=== PATIENT | female | born 1940 | race Caucasian/White ===

== ENCOUNTER → 2016-05-27 | Outpatient (CLI) | payer MEDICARE, OTHER ==
--- NOTE | 2016-05-28 11:35 | MAM ---
History: Well woman exam. Date of exam: 05/27/2016 Services provided: Bilateral full field digital screening mammography. CAD, the images were reviewed with R2 computer aided detection. FINDINGS: Glandular tissue is scattered glandular contour. Comparison with 2013 exam. No dominant mass, architectural distortion or clustered microcalcification. IMPRESSION: Benign exam Recommendation: Routine annual mammography BI-RADS Category 2: Benign Electronically signed by: Mai Sharif MD 05/28/2016 11:34 AM CDT
== END | disposition home or self-care (01) ==
LOC: MAMMO 16:08
PROVIDERS: ATTEND Internal Medicine Hematology & Oncology
DX: Z12.31 Encounter for screening mammogram for malignant neoplasm of breast (principal)

== ENCOUNTER 2016-06-01 14:31 | Emergency (ER) | payer MEDICARE, OTHER ==
[2016-06-01] MEDS ORDERED: CYCLOBENZAPRINE HCL 10 MG TAB PO ONE (14:56)
[2016-06-01] MEDS ORDERED: methylPREDNISolone SODIUM SUC 125 MG/2 ML VIAL IM ONE (14:56)
--- NOTE | 2016-06-01 14:59 | ED.PDOC ---
History of Present Illness - General Chief Complaint: Chest Pain/DC Stated Complaint: pain to left chest, shoulder and neck Time Seen by Provider: 06/01/16 14:41 Source: patient, RN notes reviewed, Vital Signs reviewed, family Exam Limitations: no limitations - History of Present Illness Initial Comments: Patient comes in with c/o of L neck, back, lateral chest and upper chest pain for the past several days. The pain is sharp and worse with movement. This past week her [employer] took her off Lodine. Pain started a couple days after stopping the medication and has just progressively worsened. She has tried heat , massage and OTC Wilbert-carlin without improvement. Timing/Duration: getting worse - over past 3-4 days Severity: severe Improving Factors: immobilization Worsening Factors: movement Associated Symptoms: chest pain Allergies/Adverse Reactions: Allergies NO KNOWN ALLERGY Allergy (Verified 06/01/16 14:56) Home Medications: Ambulatory Orders Aspirin 81 mg PO DAILY 11/09/12 Etodolac 400 mg PO BID 11/09/12 Fluticasone Prop 0.05% Nasal [Flonase Nasal Blaine] 50 mcg KATELIN DAILY 11/09/12 Folic Acid-Vitamin B6-Vitamin [Folbee 2.5-25-1 mg] 1 tab PO DAILY 11/09/12 Methotrexate Inj 0.7 ml SC WKLY 11/09/12 Tramadol HCl 50 mg PO TID 11/09/12 Folic Acid 1 mg PO DAILY 04/13/14 Tamoxifen Citrate 20 mg PO BEDTIME 04/13/14 Cyclobenzaprine HCl [Flexeril] 5 mg PO Q8HRS PRN #15 tab 06/01/16 methylPREDNISolone TAB [Medrol Tab] 4 mg PO DAILY #1 pack 06/01/16 Review of Systems - Review of Systems Constitutional: States: no symptoms reported Respiratory: States: no symptoms reported Cardiology: States: chest pain, edema, palpitations, syncope Gastrointestinal/Abdominal: States: no symptoms reported Musculoskeletal: States: see HPI, back pain, muscle pain, muscle stiffness, neck pain Skin: States: other - burn on low back from heating pad Neurological: States: no symptoms reported. Denies: headache, numbness, paresthesia, tingling Past Medical History (General) - Patient Medical History Hx Congestive Heart Failure: No Hx Diabetes: No Hx Gastroesophageal Reflux: Yes Hx Cancer: Yes - Breast CA Surgical History: no surgical history - Vaccination History Hx Influenza Vaccination: Yes - Social History Hx Tobacco Use: No Hx Alcohol Use: No Hx Substance Use: No Hx Substance Use Treatment: No Hx Depression: No - Activities of Daily Living Hospice Agency (if applicable):: None - Female History Patient is a Female of Child Bearing Age (10 -59 yrs old): No Patient : No Family Medical History - Family History Mother Family History: Unknown Living Status: Physical Exam - Physical Exam General Appearance: Alert, No apparent distress, Well Developed, Well Groomed, Well Hydrated, Well Nourished, Other - in obvious pain Neck: full range of motion, supple, tender lateral - Left with muscle spasm, tender midline - Lower aspect of C-spine Respiratory: lungs clear, normal breath sounds, no respiratory distress, no accessory muscle use, other - L upper chest and anterior shoulder is tender to palpation. Also tender L ant. axilla Cardiovascular/Chest: regular rate, rhythm, no edema, no gallop, no JVD, no murmur Back Exam: no vertebral tenderness, muscle spasm - L thoracic spine Extremity: normal range of motion, non-tender, normal inspection Neurologic: no motor/sensory deficits, alert, normal mood/affect, oriented x 3 Skin Exam: normal color, warm/dry Comments: Vital Signs - 24 hr 06/01/16 14:37 Pulse Rate [ 82 pulse ox] Respiratory 20 Rate Blood Pressure 155/80 [Right Arm] O2 Sat by Pulse 95 Oximetry Progress - Progress Progress: 06/01/16 15:04 Pain definitely sounds musculoskeletal. She has Rheumatoid Arthritis. EKG shows no acute changes. Will start with Flexeril and steroid shot. 06/01/16 16:02 Patient reports she is feeling much better. Will d/c home with Rx for Flexeril and Medrol dose pack Rec that she call her [employer] in AM - EKG/XRAY/CT EKG: Sinus, nonspecific ST T wave Chg Comments: Rate 79 bpm Departure - Departure Clinical Impression: Rheumatoid arthritis flare, Muscle spasm of back Time of Disposition: 16:03 Disposition: Discharge to Home or Self Care Condition: Good Departure Forms: ED Discharge - Pt. Copy, Patient Portal Self Enrollment Instructions: DI for Cervical Muscle Strain Diet: resume usual diet Activity: ambulate only with walker Referrals: Brian Mendieta MD [Primary Care Provider] - 1-2 Weeks Prescriptions: Cyclobenzaprine HCl [Flexeril] 5 mg PO Q8HRS PRN #15 tab PRN Reason: Muscle Spasms methylPREDNISolone TAB [Medrol Tab] 4 mg PO DAILY #1 pack Home Medications: Ambulatory Orders Aspirin 81 mg PO DAILY 11/09/12 Etodolac 400 mg PO BID 11/09/12 Fluticasone Prop 0.05% Nasal [Flonase Nasal Blaine] 50 mcg KATELIN DAILY 11/09/12 Folic Acid-Vitamin B6-Vitamin [Folbee 2.5-25-1 mg] 1 tab PO DAILY 11/09/12 Methotrexate Inj 0.7 ml SC WKLY 11/09/12 Tramadol HCl 50 mg PO TID 11/09/12 Folic Acid 1 mg PO DAILY 04/13/14 Tamoxifen Citrate 20 mg PO BEDTIME 04/13/14 Cyclobenzaprine HCl [Flexeril] 5 mg PO Q8HRS PRN #15 tab 06/01/16 methylPREDNISolone TAB [Medrol Tab] 4 mg PO DAILY #1 pack 06/01/16
[2016-06-01 16:28] VITALS: BP 167/87; O2SAT 97
== END 2016-06-01 16:15 | disposition home or self-care (01) ==
LOC: ER 14:31
DX: M06.9 Rheumatoid arthritis, unspecified (principal); M62.830 Muscle spasm of back; K21.9 Gastro-esophageal reflux disease without esophagitis; Z85.3 Personal history of malignant neoplasm of breast; Z79.82 Long term (current) use of aspirin; Z79.899 Other long term (current) drug therapy
CPT/HCPCS: 93005; J2930

== ENCOUNTER → 2016-12-10 | Outpatient (CLI) | payer MEDICARE, OTHER | END | disposition home or self-care (01) | LOC: LAB.O 11:17 | PROVIDERS: ATTEND Internal Medicine Hematology & Oncology | DX: C50.411 Malignant neoplasm of upper-outer quadrant of right female breast (principal); M19.90 Unspecified osteoarthritis, unspecified site; Z17.0 Estrogen receptor positive status [ER+] ==

== ENCOUNTER → 2016-12-17 | Outpatient (CLI) | payer MEDICARE, OTHER ==
--- NOTE | 2016-12-18 13:33 | US ---
EXAM DESCRIPTION: Soft Tissue,Head/Neck CLINICAL HISTORY: LYMPHADENOPATHY COMPARISON: None. TECHNIQUE: 2-D sonography FINDINGS: Sonography is believed to be of the submandibular glands. A small cyst is observed in the right submitted fibular gland measuring 4 mm in diameter. Sonography of the left submandibular gland reveals a somewhat heterogeneous appearance. No discrete mass is observed. IMPRESSION: The left submandibular gland is felt to be slightly heterogeneous. No discrete mass is observed. If further evaluation is desired I would recommend CT of the head and neck. Electronically signed by: Cole Correia MD 12/18/2016 1:32 PM [employer]ER
== END | disposition home or self-care (01) ==
LOC: US 16:02
PROVIDERS: ATTEND Family Medicine
DX: R59.9 Enlarged lymph nodes, unspecified (principal)

== ENCOUNTER → 2017-03-31 | Outpatient (CLI) | payer MEDICARE, OTHER | LOC: GMATM 14:50 | PROVIDERS: ATTEND Nurse Practitioner Family | DX: N30.00 Acute cystitis without hematuria (principal) ==

== ENCOUNTER → 2017-05-07 | Outpatient (CLI) | payer MEDICARE, OTHER | LOC: GMAJ 08:38 | PROVIDERS: ATTEND Family Medicine | DX: N30.00 Acute cystitis without hematuria (principal); R31.21 Asymptomatic microscopic hematuria; M54.5 Low back pain ==

== ENCOUNTER → 2017-05-12 | Outpatient (CLI) | payer MEDICARE, OTHER | END | disposition home or self-care (01) | LOC: MAMMO 13:49 | PROVIDERS: ATTEND Family Medicine | DX: Z12.31 Encounter for screening mammogram for malignant neoplasm of breast (principal) ==

== ENCOUNTER → 2017-05-25 | Outpatient (CLI) | payer MEDICARE, OTHER | LOC: GMAJ 13:26 | PROVIDERS: ATTEND Family Medicine | DX: N30.00 Acute cystitis without hematuria (principal) ==

== ENCOUNTER → 2017-05-28 | Outpatient (CLI) | payer MEDICARE, OTHER ==
--- NOTE | 2017-06-01 11:35 | MAM ---
EXAM DESCRIPTION: 3D Screening BILATERAL : Digital Mammography. CLINICAL HISTORY: 76 years Female SCREENING . Right breast cancer November 2012. Biopsy-proven. No family history breast cancer. Postmenopausal. No HRT. COMPARISON: 2-D digital screening bilateral study 05/27/2016. 2-D digital screening bilateral study 10/12/2012. Report from prior examination 2017 also reviewed. TECHNIQUE: Bilateral CC and MLO projection full-field images, 3-D tomosynthesis digital mammographic technique. Also bilateral synthesized CC/ MLO full-field images. CAD not utilized. FINDINGS: The breast parenchymal density pattern is: Scattered areas of fibroglandular density. No skin thickening or nipple retraction bilateral solitary microcalcifications. Bilateral vascular calcifications. Focal architectural distortion in the posterior third of the lateral right breast is most likely fatty necrosis, location of prior biopsy and malignancy. No focal, stellate mass or density, focal asymmetry , and no suspicious microcalcifications bilaterally. Stable mammograms compared to prior study, taking into account differences in mammographic technique IMPRESSION: BI-RADS CATEGORY: 2 - BENIGN FINDINGS. FOLLOW UP: Routine digital bilateral screening, one year interval from May 2017. Written communication explaining the IMPRESSION and follow-up, will be mailed to the patient and referring health care provider. According to the [employer], yearly mammograms are recommended starting at age 40 and continuing as long as a woman is in good health. Any breast change noted on a breast self-exam should be reported promptly to the patient's healthcare provider. Breast MRI is recommended for women with an approximately 20-25% or greater lifetime risk of breast cancer, including women with a strong family history of breast or ovarian cancer and women who have been treated for Hodgkin's disease. A negative mammographic report should not delay tissue diagnosis in patients with significant clinical history or physical findings. Extremely dense breast tissue limits the sensitivity of digital mammography. Electronically signed by: Harish Escalante MD 06/01/2017 11:33 AM CDT
== END ==
LOC: MAMMO 15:00
PROVIDERS: ATTEND Family Medicine
DX: Z12.31 Encounter for screening mammogram for malignant neoplasm of breast (principal)

== ENCOUNTER → 2017-07-16 | Outpatient (CLI) | payer MEDICARE, OTHER | LOC: LAB.O 13:41 | PROVIDERS: ATTEND Internal Medicine Rheumatology | DX: Z79.899 Other long term (current) drug therapy (principal) ==

== ENCOUNTER → 2017-08-03 | Outpatient (CLI) | payer MEDICARE, OTHER | LOC: GMAJ 15:00 | PROVIDERS: ATTEND Family Medicine | DX: R07.2 Precordial pain (principal) ==

== ENCOUNTER → 2017-08-04 | Outpatient (CLI) | payer MEDICARE, OTHER ==
--- NOTE | 2017-08-04 10:40 | CT ---
EXAM DESCRIPTION: Chest w/Contrast : Computed Tomography. CLINICAL HISTORY: PRECORDIAL PAIN COMPARISON: Chest x-ray from [facility] clinic 07/30/2017. 3-D screening bilateral mammography 05/28/2017. TECHNIQUE: Spiral-axial scans at 5.0 mm intervals through the lungs and thorax without IV contrast. 2.5 mm lung algorithm axial reconstructions. Coronal and sagittal 2.0 Mm reconstructions. No adverse reactions. Total Exam DLP: 401.62 mGy-cm. This exam was performed according to our departmental dose-optimization program which includes automated exposure control, adjustment of the mA and/or kV according to patient size and/or use of iterative reconstruction technique; to reduce radiation dose to as low as reasonably achievable (ALARA). FINDINGS: Bilateral apical pleural thickening. 3 mm subpleural soft tissue nodule lateral base of the right upper lobe (axial series 4, image 54). 3 mm soft tissue nodule subpleural lateral right lower lobe on image 90. 4.5 mm soft tissue nodule which may be associated with the major fissure lateral right middle lobe on image 72. 3 mm soft tissue nodule lateral right middle lobe, image 70 bilateral. Centrilobular blebs are present mostly in the upper lobes. Minimal scarring in the bases. No pleural effusion or pneumothorax. Focal asymmetry in the left breast posterior third at the level of the nipple. Great vessels enhance well without contrast. Bilateral enhancement of the thyroid gland. No enlarged lymph nodes or soft tissue masses in the chest wall mediastinum or enrique or axilla. Subdiaphragmatic peritoneal space shows no fluid or free air. Normal size and enhancement of the adrenal glands and spleen. 4 cm cyst upper pole left kidney. Atherosclerosis abdominal aorta. Subcentimeter cyst right liver abutting the capsule. Disc space narrowing thoracic spine multiple levels. IMPRESSION: 1. Multiple soft tissue subpleural nodules in the right lung, all less than [address] follow-up in 12 month interval according to [facility] recommendations. Please see below. Minimal emphysematous changes more prevalent in the upper lung dey. No significantly abnormal nodule mass infiltrate or pleural effusion. 2. No hilar mediastinal or axillary abnormal lymph nodes or soft tissue masses. 3. Focal asymmetry posterior third left breast in the same transverse plane as the nipple. This was seen on recent digital mammography in May 2017 and was stable compared to prior digital mammography October 2015. 4. 4 cm cyst left kidney. Electronically signed by: Hraish Escalante MD 08/04/2017 10:39 AM CDT
== END ==
LOC: CT 07:59
PROVIDERS: ATTEND Family Medicine
DX: R07.2 Precordial pain (principal); R91.8 Other nonspecific abnormal finding of lung field; N28.1 Cyst of kidney, acquired

== ENCOUNTER → 2017-08-18 | Outpatient (CLI) | payer MEDICARE, OTHER | LOC: GMAJ 17:00 | PROVIDERS: ATTEND Family Medicine | DX: N95.0 Postmenopausal bleeding (principal) ==

== ENCOUNTER → 2017-08-20 | Outpatient (CLI) | payer MEDICARE, OTHER ==
--- NOTE | 2017-08-20 16:52 | US ---
Procedure: US TRANSVAGINAL Exam Date: 08/20/2017 Ordering Provider: DEONTE YUN Clinical Indication: POSTMENOPAUSAL BLEEDING Comparison: None Technique: Transabdominal and endovaginal ultrasound of the pelvis was obtained. Findings: The uterus measures 9.0 x 3.5 x 4.6 cm . There are no uterine masses. The endometrial complex measures 21.2 mm which is abnormal. The endometrium is heterogenous, vascular and demonstrates cystic change. Nabothian cysts. Ovaries were obscured by overlying bowel gas. No pelvic free fluid. Impression: 1. Abnormally thickened vascular endometrial complex with cystic change. Tissue sampling and [employer]ATOR consultation are recommended. Electronically signed by: Garcia Espinosa MD 08/20/2017 4:50 PM CDT
== END ==
LOC: US 14:34
PROVIDERS: ATTEND Family Medicine
DX: R10.2 Pelvic and perineal pain (principal)

== ENCOUNTER → 2018-06-03 | Outpatient (CLI) | payer MEDICARE, OTHER ==
--- NOTE | 2018-06-04 12:55 | MAM ---
EXAM DESCRIPTION: 3D Screening BILATERAL : Digital Mammography. CLINICAL HISTORY: 77 years Female ANNUAL SCREENING . No complaints. Right breast cancer 2013. No family history breast cancer. Lifetime risk of developing breast cancer (Tyrer-Cuzick model)(%): Not calculated due to personal history of breast cancer. COMPARISON: Digital screening bilateral breast tomosynthesis. 05/28/2017. TECHNIQUE: Bilateral CC and MLO projection full-field images, digital tomosynthesis mammographic technique. Bilateral digital 2-D full-field MLO images. CAD not available for tomosynthesis or 2-D images. FINDINGS: The breast parenchymal density pattern is: Scattered areas of fibroglandular density. No skin thickening or nipple retraction. Bilateral solitary microcalcifications. Bilateral groups of calcifications. Bilateral vascular calcifications. Minimal artifact from patient's chin in the [id number] on the coronal images. No new focal, stellate mass or density, focal asymmetry , and no suspicious microcalcifications bilaterally. Stable mammograms compared to prior study. Taking into account, differences in mammographic technique. IMPRESSION: Benign exam. BIRAD CATEGORY: 2 BENIGN FINDINGS. RECOMMENDATIONS: FOLLOW UP: Routine digital bilateral mammographic screening, one year interval from May 2018. Written communication explaining the IMPRESSION and follow-up, will be mailed to the patient and referring health care provider. The FINDINGS and the FOLLOW-UP plan were reviewed in person with the patient after the examination. According to the [employer], yearly mammograms are recommended starting at age 40 and continuing as long as a woman is in good health. Any breast change noted on a breast self-exam should be reported promptly to the patient's healthcare provider. Breast MRI is recommended for women with an approximately 20-25% or greater lifetime risk of breast cancer, including women with a strong family history of breast or ovarian cancer and women who have been treated for Hodgkin's disease. A negative mammographic report should not delay tissue diagnosis in patients with significant clinical history or physical findings. Extremely dense breast tissue limits the sensitivity of digital mammography. Electronically signed by: Harish Escalante MD 06/04/2018 12:53 PM CDT
== END ==
LOC: MAMMO 10:00
PROVIDERS: ATTEND Internal Medicine Hematology & Oncology
DX: Z12.31 Encounter for screening mammogram for malignant neoplasm of breast (principal)

== ENCOUNTER → 2018-06-16 | Outpatient (CLI) | payer MEDICARE, OTHER ==
--- NOTE | 2018-06-16 12:53 | CT ---
EXAM DESCRIPTION: Chest w/Contrast CLINICAL HISTORY: 77 years, Female, R91.1 PULMONARY NODULE COMPARISON: Previous study August 04, 2017 TECHNIQUE: Thin-section noncontrast axial CT images are obtained according to our protocol. Reconstructed MPR images are created and reviewed as well. FINDINGS: Lungs: No consolidating pulmonary infiltrate or groundglass infiltrate. No worrisome pulmonary mass or nodule. Small triangular density associated with the minor fissure measures 4 mm consistent with a small pulmonary lymph node. This is unchanged compared to the previous study August 04, 2017 Minimal pleural parenchymal scarring in the lung apices. Small linear subpleural scarring anterior right upper lobe. Minimal linear scarring in the lingula and right middle lobe. Calcified granuloma in the right lower lobe. No follow-up imaging is recommended for the above findings. Mediastinum: Lymph nodes are normal in size. Normal vascular contours. Heart size is normal with no pericardial effusion. Chest wall/axilla: No mass or adenopathy. Previously noted prominent retroareolar left breast tissue appears slightly more prominent on the present study. Correlate with mammographic findings. Lower neck/supraclavicular: No mass or adenopathy. Normal thyroid gland. Upper abdomen: Cyst in the left kidney. Small cysts in the right lobe of the liver. Otherwise unremarkable upper abdominal viscera. IMPRESSION: Stable subpleural scarring in the apices and anterior right upper lobe. Stable pulmonary lymph node associated with the right minor fissure. Calcified granuloma in the right lower lobe. No follow-up imaging is recommended for the above pulmonary findings. Prominent breast tissue on the left. Correlate with mammographic findings. This exam was performed according to our departmental dose-optimization program, which includes automated exposure control, adjustment of the mA and/or kV according to patient size and/or use of iterative reconstruction technique. Total DLP equals 321.93 mGycm. Electronically signed by: Nik Borges MD 06/16/2018 12:51 PM CDT
== END ==
LOC: LAB.O 10:31
PROVIDERS: ATTEND Family Medicine
DX: R91.1 Solitary pulmonary nodule (principal)

== ENCOUNTER → 2019-06-15 | Outpatient (CLI) | payer OTHER ==
--- NOTE | 2019-06-15 21:01 | MAM ---
EXAM DESCRIPTION: 3D Screening BILATERAL : Digital Mammography. CLINICAL HISTORY: 78 years Female ANNUAL SCREENING . Personal history of breast cancer November 2012. No family history of breast cancer. No complaints. Menarche age 14. Childbirth age 23. Menopause age 45. No HRT. Lifetime risk of developing breast cancer (Tyrer-Cuzick model)(%): 4.1. COMPARISON: Bilateral screening digital breast tomosynthesis May 2018. TECHNIQUE: Bilateral CC and MLO projection full-field images, digital tomosynthesis mammographic technique. Bilateral digital 2-D full-field MLO images. CAD available for 2-D images. FINDINGS: The breast parenchymal density pattern is: Scattered areas of fibroglandular density. No skin thickening or nipple retraction. Bilateral solitary microcalcifications. Vascular calcifications. Skin mole marker bilateral breasts. No new focal, stellate mass or density, focal asymmetry , and no suspicious microcalcifications . Stable mammograms compared to prior study. IMPRESSION: Benign exam. BIRAD CATEGORY: 2 BENIGN FINDINGS. RECOMMENDATIONS: FOLLOW UP: Routine digital bilateral mammographic screening, one year interval from June 2019. Written communication explaining the IMPRESSION and follow-up, will be mailed to the patient and referring health care provider. According to the [employer], yearly mammograms are recommended starting at age 40 and continuing as long as a woman is in good health. Any breast change noted on a breast self-exam should be reported promptly to the patient's healthcare provider. Breast MRI is recommended for women with an approximately 20-25% or greater lifetime risk of breast cancer, including women with a strong family history of breast or ovarian cancer and women who have been treated for Hodgkin's disease. A negative mammographic report should not delay tissue diagnosis in patients with significant clinical history or physical findings. Extremely dense breast tissue limits the sensitivity of digital mammography. Electronically signed by: Harish Escalante MD 06/15/2019 8:59 PM CDT
== END ==
LOC: MAMMO 10:00
PROVIDERS: ATTEND Internal Medicine Hematology & Oncology
DX: Z12.31 Encounter for screening mammogram for malignant neoplasm of breast (principal)